=== PATIENT | female | born 1960 ===

== ENCOUNTER 2025-05-24 09:37 | Emergency (ER) | payer OTHER ==
[~2025-05-24] VITALS: Ht 157.5 cm; Wt 77.1 kg
[2025-05-24] MEDS ORDERED: JARDIANCE25 MG PO (09:52)
[2025-05-24] MEDS ORDERED: METFORMIN HCL1000 M2 (09:52)
[2025-05-24] MEDS ORDERED: SIMVASTATIN40 MG PO (09:53)
[2025-05-24] MEDS ORDERED: CARVEDILOL12.5 MG (09:53)
[2025-05-24] MEDS ORDERED: METHOTREXATE2.5 MG PO (09:53)
[2025-05-24] MEDS ORDERED: MELOXICAM7.5 MG (09:53)
[2025-05-24] MEDS ORDERED: IRBESARTAN300 MG PO (09:54)
[2025-05-24] MEDS ORDERED: ZETIA10 MG (09:54)
[2025-05-24] MEDS ORDERED: FOLIC ACID20 MG (09:54)
[2025-05-24 10:29] LABS: BASO % 0.5 % (0.1-1.2); EOS # 0.08 (0.04-0.54); EOS % 1.0 % (0.7-7.0); LYMPH # 1.57 (1.18-3.74); LYMPH % 19.7 % (19.3-53.1); MEAN PLATELET VOLUME 8.30 fl (9.4-12.4); MONO # 0.75 (0.24-0.82); MONO % 9.4 % (4.7-12.5); NEUT # 5.52 (1.56-6.13); NEUT % 69.1 % (34.0-71.1); RED CELL DISTRIBUTION WIDTH 14.6 % (11.6-14.4)
[2025-05-24 11:16] LABS: ALT/SGPT 29.0 U/L (12-78); AST/SGOT 27.0 U/L (15-37); BILIRUBIN TOTAL 0.55 mg/dL (0.3-1.2); BUN CREA RATIO 22.0 (7.0-25.0); CREATININE SERUM 0.94 mg/dL (0.55-1.02); GFR 59.76; GLOBULINA 4.0 G/DL (2.4-3.5); GLUCOSE FASTING 88.0 mg/dL (65-100); OSMOLALITY SERUM 280.0 MOSM/KG (275-295)
== END 2025-05-24 12:23 | disposition home or self-care (01) ==
LOC: ER 09:37
PROVIDERS: General Practice
DX: H53.8 Other visual disturbances (principal); R51.9 Headache, unspecified; E11.9 Type 2 diabetes mellitus without complications; Z79.84 Long term (current) use of oral hypoglycemic drugs; I10 Essential (primary) hypertension